=== PATIENT | female | born 1990 | race Caucasian/White ===

== ENCOUNTER → 2016-04-20 10:22 | Outpatient (CLI) | payer MEDICAID ==
[2012-02-09 10:27] VITALS: BMI 51.6
[~2016-04-20 10:22] MED LIST: GLUCOPHAGE1000 MG PO; GLUCOTROL XL 1010 MG PO; LEXAPRO20 MG PO; OMEPRAZOLE40 MG PO; ZOCOR40 MG PO
[2016-06-08 16:24] VITALS: BMI 50.1
== END | disposition home or self-care (01) ==
LOC: D.RAD 10:22
DX: M54.31 Sciatica, right side (principal); M54.32 Sciatica, left side

== ENCOUNTER → 2016-04-25 08:15 | Outpatient (CLI) | payer MEDICAID ==
[2012-02-09 10:27] VITALS: BMI 51.6
[2016-04-25 09:01] LABS: ALBUMIN 3.2 g/dL (3.4-5.0); BILIRUBIN - DIRECT 0.13 mg/dL (0.00-0.30); BILIRUBIN - INDIRECT 0.91 mg/dL (0.00-1.00); BILIRUBIN - TOTAL 1.04 mg/dL (0.2-1.3); PROTEIN - SERUM 8.2 g/dL (6.4-8.2)
[2016-04-26 07:26] LABS: HEPATITIS C ANTIBODY <0.1 (0.0-0.9)
[2016-06-08 16:24] VITALS: BMI 50.1
== END | disposition home or self-care (01) ==
LOC: D.US 08:15
PROVIDERS: Internal Medicine Gastroenterology
DX: K76.0 Fatty (change of) liver, not elsewhere classified (principal); R79.89 Other specified abnormal findings of blood chemistry

== ENCOUNTER 2016-06-08 13:31 | Day surgery (SDC) | payer MEDICAID ==
[~2016-06-08] VITALS: Ht 172.7 cm; Wt 149.5 kg
[2016-06-08 15:33] LABS: BASOPHILS 0.6 % (0.0-2.0); HEMATOCRIT 39.2 % (36.0-48.0); HEMOGLOBIN 13.3 g/dL (12-16); IMMATURE GRANULOCYTES 0.5 % (0-5); LYMPHOCYTES 32.3 % (15-50); MCH 29.5 pg (26.0-34.0); MCHC 33.9 g/dL (31.0-37.0); MCV 86.9 fL (80.0-100.0); MEAN PLATELET VOLUME 11.2 fL (7.4-10.4); MONOCYTES 5.7 % (2-11); NEUTROPHILS 58.9 % (40-80); PLATELET COUNT 223 10x3/uL (130-400); RBC 4.51 10x6/uL (4.00-5.40); RDW 12.9 % (11.5-14.5); WBC 7.8 10x3/uL (4.8-10.8)
[2016-06-08 16:02] LABS: CALC OSMOLALITY 283 mosm/kg (275-300); CALCIUM 8.9 mg/dL (8.5-10.1); CARBON DIOXIDE 26.9 mmol/L (21.0-32.0); CHLORIDE - SERUM 102 mmol/L (98-107); CREATININE - SERUM 0.7 mg/dL (0.6-1.3); GLUCOSE 279 mg/dL (74-106); POTASSIUM - SERUM 3.8 mmol/L (3.5-5.1); SODIUM 138 mmol/L (136-145); UREA NITROGEN 8 mg/dL (7-18); eGFR NON AFRICAN AMERICAN > 90 mL/min (90-120)
[2016-06-08] MEDS ORDERED: GLUCOTROL XL 1010 MG PO (16:17)
[2016-06-08] MEDS ORDERED: GLUCOPHAGE1000 MG PO (16:18)
[2016-06-08] MEDS ORDERED: ZOCOR40 MG PO (16:18)
[2016-06-08] MEDS ORDERED: LEXAPRO20 MG PO (16:18)
[2016-06-08] MEDS ORDERED: OMEPRAZOLE40 MG PO (16:19)
[2016-06-08 16:24] VITALS: BP 122/81; Ht 172.7 cm; Wt 149.5 kg
[2016-06-08 16:28] LABS: HCG URINE NEGATIVE (NEGATIVE)
--- NOTE | 2016-06-28 12:04 | OP ---
PATIENT NAME: ISAAC JOHN MEDICAL RECORD: [id number] :88 LOCATION:[facility] ADMISSION DATE: SURGEON: YESENIA NEGRON DO DATE OF OPERATION: 06/08/2016 PROCEDURE: EGD with biopsies. ENDOSCOPIST: Yesenia Negron DO SCOPE: Olympus video gastroscope. MEDICATIONS: Per TIVA anesthesia, propofol 300 mg IV, and lidocaine 100 mg IV. INDICATION FOR THE PROCEDURE: Diarrhea, heartburn, nausea, vomiting, pain provoked by eating. FINDINGS: Informed consent was given. The patient was made comfortable with the above medications. After reaching an adequate level of sedation by slow IV push, the patient was placed on her left side. The endoscope was then advanced under direct visualization through the mouth to the second portion of the duodenum. The upper, middle and lower thirds of the esophagus were normal in appearance. At the GE junction, there was evidence of LA class C reflux induced esophagitis. The scope was advanced into the stomach and retroflexed. The cardia appeared normal. The scope was then advanced down to the antrum of the stomach. There was some mild evidence of gastritis possibly. There was some erythema and streaks apparent. Random biopsies were taken of the antrum, incisura and body of the stomach. The pylorus appeared normal and the endoscope was advanced beyond this into the duodenum, which also appeared normal in the bulb and second portion. Random biopsies were taken of the bulb and second portion of the duodenum and sent for histology. The scope was then withdrawn from the patient. The patient tolerated the procedure well and there were no complications. ESTIMATED BLOOD LOSS: Minimal. IMPRESSION: 1. LA class C reflux-induced esophagitis. 2. Erythematous mucosa in the stomach consistent with gastritis. Biopsies taken. PLAN AND RECOMMENDATIONS: 1. A 6-week trial of antacid therapy consisting of PPI 40 mg equivalent dose daily in the a.m. 2. Proceed with colonoscopy as previously scheduled. 3. Consider gastric emptying study. 4. Further recommendations will follow findings at time of lower endoscopy. TRANSINT:[id number] Voice Confirmation ID: [id number] DOCUMENT ID: [id number] OPERATIVE REPORT [id number] ISAAC JOHN YESENIA NEGRON DO at 1204 CC: [id number] DICTATION DATE: 06/08/16 1700 PATIENT ACCOUNT REPRESENTATIVE: 06/08/16 2253 [facility] 06/08/16 [place] [id number] [place] [id number]
== END 2016-06-08 18:20 | disposition home or self-care (01) ==
LOC: D.OPS 13:31
PROVIDERS: Anesthesiology; Internal Medicine Gastroenterology
DX: K21.0 Gastro-esophageal reflux disease with esophagitis (principal); K29.70 Gastritis, unspecified, without bleeding

== ENCOUNTER 2016-07-11 09:58 | Day surgery (SDC) | payer MEDICAID ==
[~2016-07-11] VITALS: Ht 175.3 cm; Wt 145.0 kg
[2016-07-11 11:51] LABS: HEMOGLOBIN 14.1 g/dL (12-16); MCH 28.1 pg (26.0-34.0); MCHC 33.6 g/dL (31.0-37.0); MCV 83.8 fL (80.0-100.0); MEAN PLATELET VOLUME 10.8 fL (7.4-10.4); RBC 5.01 10x6/uL (4.00-5.40); RDW 12.6 % (11.5-14.5); WBC 7.3 10x3/uL (4.8-10.8)
[2016-07-11 12:04] LABS: HCG URINE NEGATIVE (NEGATIVE)
[2016-07-11] MEDS ORDERED: ADDERALL XR 3030 MG PO (12:07)
[2016-07-11] MEDS ORDERED: KLONOPIN0.5 MG PO (12:07)
[2016-07-11] MEDS ORDERED: PROTONIX40 MG PO (12:08)
[2016-07-11 12:09] VITALS: BP 123/67; Ht 175.3 cm; Wt 145.0 kg
[2016-07-11 12:16] LABS: CALC OSMOLALITY 280 mosm/kg (275-300); CALCIUM 8.8 mg/dL (8.5-10.1); CARBON DIOXIDE 21.1 mmol/L (21.0-32.0); CHLORIDE - SERUM 98 mmol/L (98-107); CREATININE - SERUM 0.8 mg/dL (0.6-1.3); POTASSIUM - SERUM 3.6 mmol/L (3.5-5.1); SODIUM 134 mmol/L (136-145); UREA NITROGEN 9 mg/dL (7-18); eGFR NON AFRICAN AMERICAN > 90 mL/min (90-120)
[2016-07-11 12:17] LABS: GLUCOSE 354 mg/dL (74-106)
--- NOTE | 2016-07-11 12:28 | NUR ---
1220 REPOTED GLUCOSE 354 TO TACHO MARINO ANESTHESIA NO ORDERS REPORTED TOOK HER GLUCOPHAGE AND GLUCOTROL THIA AM AND NO NEW ORDERS.
--- NOTE | 2016-07-12 09:05 | OP ---
PATIENT NAME: ISAAC JOHN MEDICAL RECORD: [id number] :88 [facility]ATION[facility] AD[facility]ION DATE: SURGEON: YESENIA ALLEN DO DATE OF OPERATION: 07/11/2016 PROCEDURE: Colonoscopy with biopsy. SCOPE: Olympus video pediatric colonoscope. MEDICATIONS: Propofol 500 mg IV per anesthesia. INDICATIONS FOR PROCEDURE: Diarrhea, hematochezia, and lower abdominal pain. FINDINGS: Informed consent was given. The patient was made comfortable with the above medication. After reaching an adequate level of sedation by slow IV push, the patient was placed on her left side. A digital rectal examination was performed and was within normal limits. The pediatric colonoscope was then advanced under direct visualization through the rectum to the terminal ileum. The endoscope was then slowly withdrawn while the mucosa was carefully examined. There were some internal hemorrhoids, which were small and visualized on retroflexion in the rectum. There were no bleeding stigmata, but this is likely the source of intermittent bleeding. The remainder of the examination was normal in its entirety including the terminal ileum. Random biopsies were taken of the ascending and transverse colon to rule out microscopic colitis. The scope was withdrawn from the patient. The patient tolerated the procedure well and there were no complications. ESTIMATED BLOOD LOSS: Less than 3 cc. IMPRESSION: 1. Normal colonoscopy, other than small internal hemorrhoids without bleeding stigmata visualized on retroflexion in the rectum. RECOMMENDATIONS: 1. Discharge home when recovery parameters are met. 2. Continue current diet. 3. Trial of Bentyl 20 mg p.o. b.i.d. p.r.n. diarrhea or abdominal pain. 4. If Bentyl does not help with the symptoms, consider trial of Viberzi 100 mg twice daily regarding IBS, diarrhea symptoms. 5. Follow up as needed in the GI clinic. TRANSINT:[id number] Voice Confirmation ID: [id number] DOCUMENT ID: [id number] YESENIA ALLEN DO at 0905 CC: [id number] DICTATION DATE: 07/11/16 1425 SALESPERSON FLYING SQUAD: 07/11/16 2302 [facility] 07/11/16 [place] [address]
== END 2016-07-11 15:38 | disposition home or self-care (01) ==
LOC: D.OPS 09:58
PROVIDERS: Anesthesiology; Internal Medicine Gastroenterology
DX: K92.1 Melena (principal); R19.7 Diarrhea, unspecified; R10.30 Lower abdominal pain, unspecified; K21.9 Gastro-esophageal reflux disease without esophagitis; E11.9 Type 2 diabetes mellitus without complications; E66.01 Morbid (severe) obesity due to excess calories; Z68.42 Body mass index [BMI] 45.0-49.9, adult